=== PATIENT | male | born 1980 | race Two or more races ===

== ENCOUNTER 2020-07-30 18:15 | Emergency (ER) | payer MEDICAID ==
[~2020-07-30] VITALS: Ht 182.9 cm; Wt 83.9 kg
[2020-07-30 18:15] VITALS: BP 140/98
--- NOTE | 2020-07-30 18:43 | Emergency Room Report ---
History of Present Illness General Chief Complaint: Alcohol Intoxication Source: Patient (Constantin Sanchez) Present Illness HPI 40-year-old male with no nausea no past medical history brought in by paramedics due to alcohol intoxication. Patient is alert and awake. Reports that he had a lot of alcohol. Denies any drug use. Denies all other past medical history. Denies chest pain shortness of breath at this time. Appears to be stable with stable vital signs. (Constantin Sanchez) Allergies: Coded Allergies: No Known Allergies (Unverified , 07/30/20) COVID-19 Screening Contact w/high risk pt: No Experienced COVID-19 symptoms?: No COVID-19 Testing performed [employer]: No (Constantin Sanchez) Patient History Past Medical History: see triage record Past Surgical History: none Pertinent Family History: none Immunizations: UTD Reviewed Nursing Documentation: PMH: Agreed; PSxH: Agreed (Constantin Sanchez) Nursing Documentation-PMH Past Medical History: No Stated History (Constantin Sanchez) Review of Systems All Other Systems: negative except mentioned in HPI (Constantin Sanchez) Physical Exam Vital Signs Date Time Temp Pulse Resp B/P (MAP) Pulse Ox O2 Delivery O2 Flow Rate FiO2 07/30/20 18:11 97.7 85 19 140/98 (112) 96 Room Air Sp02 EP Interpretation: reviewed, normal General Appearance: no apparent distress, alert, GCS 15, non-toxic Head: normocephalic, atraumatic Eyes: bilateral eye normal inspection, bilateral eye PERRL ENT: hearing grossly normal, no angioedema, normal voice Neck: full range of motion, supple/symm/no masses Respiratory: chest non-tender, lungs clear, normal breath sounds, no rhonchi, speaking full sentences Cardiovascular #1: regular rate, rhythm, no edema, no murmur Cardiovascular #2: 2+ carotid (R), 2+ carotid (L), 2+ radial (R), 2+ radial (L), 2+ dorsalis pedis (R), 2+ dorsalis pedis (L) Gastrointestinal: normal bowel sounds, non tender, soft, non-distended, no guarding, no rebound Rectal: deferred Musculoskeletal: back normal Neurologic: alert, motor strength/tone normal, oriented x3, sensory intact, responsive, speech normal Psychiatric: judgement/insight normal, no suicidal/homicidal ideation Skin: no rash Lymphatic: no adenopathy (Constantin Sanchez) Medical Decision Making PA Attestation All diagnoses and treatment plans were reviewed and discussed with my supervising physician Dr. Fajardo (Constantin Sanchez) Homeless Attestation I, The treating physician, Dr Sabas Magana, has assessed and agrees that patient is medically stable for discharge to an outpatient disposition. (Sabas Magana MD) Diagnostic Impression: Primary Impression: Acute alcoholic intoxication Qualified Codes: F10.920 - Alcohol use, unspecified with intoxication, uncomplicated ER Course 40-year-old male with no nausea no past medical history brought in by paramedics due to alcohol intoxication. Patient is alert and awake. Reports that he had a lot of alcohol. Denies any drug use. Denies all other past medical history. Denies chest pain shortness of breath at this time. Appears to be stable with stable vital signs. Ddx considered but are not limited to: Alcohol intoxication with altered level of consciousness, alcohol intoxication causing pancreatitis, alcohol abuse, multi drug use and alcohol intoxication Vital signs: are WNL, pt. is afebrile H&PE are most consistent with: alcohol intoxication ORDERS: CBC, CMP, UA, tox screen, EtOH level, ER intervention: NS bolus, Zofran, Pepcid I signed out the patient to Dr. Fajardo at 8:30 PM DISCHARGE: At this time pt. is stable for d/c to home. Will provide printed patient care instructions, and any necessary prescriptions. Care plan and follow up instructions have been discussed with the patient prior to discharge. (Constantin Sanchez) ER Course This patient was signed out to me. He presents with alcohol intoxication. He is awake now and talking without any slurred speech. He is not suicidal or homicidal. I would let him sleep through the night here and discharge in the morning. His brother called and will be picking him up. (Sabas Magana MD) Last Vital Signs Date Time Temp Pulse Resp B/P (MAP) Pulse Ox O2 Delivery O2 Flow Rate FiO2 07/30/20 18:15 97.7 85 19 140/98 96 Room Air (Constantin Sanchez) Status: improved (Sabas Magana MD) Disposition: HOME, SELF-CARE Condition: Stable Patient Instructions: Alcohol Intoxication, [id number] Additional Instructions: Abstain from alcohol. Go to rehab. Follow-up with your doctor in 7 days. Return if worse. Constantin Sanchez Jul 30, 2020 18:43 Sabas Magana MD Jul 31, 2020 01:11
[2020-07-30 19:55] LABS: ANION GAP 5 mmol/L (5-15); BLOOD UREA NITROGEN 20 mg/dL (7-18); CALCIUM 8.5 MG/DL (8.5-10.1); CARBON DIOXIDE 32 MMOL/L (21-32); CHLORIDE 104 MMOL/L (98-107); CREATININE 1.1 MG/DL (0.55-1.30); POTASSIUM 4.5 MMOL/L (3.5-5.1); SODIUM 141 MMOL/L (136-145)
[2020-07-30 20:00] VITALS: BP 138/96
[2020-07-30 20:01] LABS: ALANINE AMINOTRANSFERASE 24 U/L (12-78); ALBUMIN 3.9 G/DL (3.4-5.0); ALBUMIN/GLOBULIN RATIO 0.9 (1.0-2.7); ALKALINE PHOSPHATASE 92 U/L (46-116); ASPARTATE AMINO TRANSFERASE 32 U/L (15-37); BILIRUBIN,TOTAL 0.4 MG/DL (0.2-1.0)
[2020-07-30 20:02] LABS: BASOPHILS % (AUTO) 1.8 % (0.0-2.0); EOSINOPHILS % (AUTO) 3.2 % (0.0-3.0); HEMATOCRIT 37.7 % (42.0-52.0); HEMOGLOBIN 12.6 G/DL (14.2-18.0); LYMPHOCYTES % (AUTO) 31.7 % (20.0-45.0); MEAN CORPUSCULAR VOLUME 87 FL (80-99); MONOCYTES % (AUTO) 8.4 % (1.0-10.0); PLATELET COUNT 267 K/UL (150-450); RED BLOOD COUNT 4.34 M/UL (4.70-6.10); WHITE BLOOD COUNT 4.4 K/UL (4.8-10.8)
[2020-07-30 21:44] LABS: APPEARANCE,URINE CLEAR; BILIRUBIN, URINE NEGATIVE (NEGATIVE); COLOR,URINE PALE YELLOW; GLUCOSE, URINE (UA) NEGATIVE (NEGATIVE); KETONES,URINE NEGATIVE (NEGATIVE); LEUKOCYTE ESTERASE ,URINE NEGATIVE (NEGATIVE); NITRITE,URINE NEGATIVE (NEGATIVE); PH,URINE 7 (4.5-8.0); PROTEIN,URINE NEGATIVE (NEGATIVE); UROBILINOGEN,URINE NORMAL MG/DL (0.0-1.0)
[2020-07-30 23:00] VITALS: BP 132/95
[2020-07-31 01:47] VITALS: BP 130/80
[2020-07-31 02:25] VITALS: BP 135/82
== END 2020-07-31 02:02 | disposition home or self-care (01) ==
LOC: EDBD 18:15 → EMR 18:45
DX: F10.920 Alcohol use, unspecified with intoxication, uncomplicated (principal)
CPT/HCPCS: 36415; 80053; 80307; 81003; 85025; 96361; 96374; 96375; G0480; J2405; S0028; Z7502; 99284